=== PATIENT | female | born 1965 | race Caucasian/White ===

== ENCOUNTER 2018-04-27 05:46 | Day surgery (SDC) | payer OTHER ==
[2018-04-27] MEDS ORDERED: SOD CHLORIDE 0.9% 1,000 ML IV (06:00)
[2018-04-27] MEDS ORDERED: CEFAZOLIN 2 GM/50 ML (PMX) 50 ML IVPB (06:00)
[2018-04-27] MEDS ORDERED: HYDROmorphONE 1 MG/5 ML IV SYRINGE IV ×3 (07:30)
[2018-04-27] MEDS ORDERED: ONDANSETRON 4 MG INJ IV (07:30)
[2018-04-27] MEDS ORDERED: FENTAnyl 50 MCG/ML VIAL IV ×3 (07:30)
[2018-04-27] MEDS ORDERED: DIPHENHYDRAMINE 50 MG INJ IV (07:30)
[2018-04-27] MEDS ORDERED: OXYCODONE/ACETAMINOPHEN (5/325) TAB PO (07:30)
[2018-04-27] MEDS ORDERED: MEPERIDINE 25 MG INJ IV (07:30)
[2018-04-27] MEDS ORDERED: PROCHLORPERAZINE 10 MG INJ IV (07:30)
[2018-04-27] MEDS ORDERED: LIDOCAINE 2% (MDV) 20 ML INJ (07:47)
[2018-04-27] MEDS ORDERED: PROPOFOL 20 ML (07:56)
[2018-04-27] MEDS ORDERED: MIDAZOLAM 1 MG/ML 2 ML INJ (07:57)
[2018-04-27] MEDS ORDERED: FENTAnyl 50 MCG/ML VIAL (08:09)
[2018-04-27] MEDS: LIDOCAINE 2% (SDV) 5 ML INJ (08:21)
[2018-04-27] MEDS: BUPIVACAINE 0.25% (MPF) 30 ML INJ (08:22)
[2018-04-27] MEDS ORDERED: CEFAZOLIN 1 GM INJ (08:22)
[2018-04-27] MEDS ORDERED: HYDROCODONE/APAP (5/325) TAB PO (09:00)
== END 2018-04-27 10:51 | disposition home or self-care (01) ==
LOC: SDS 05:46
DX: D17.1 Benign lipomatous neoplasm of skin and subcutaneous tissue of trunk (principal); E11.9 Type 2 diabetes mellitus without complications
CPT/HCPCS: 14001; 82962; 84703; 88307